=== PATIENT | female | born 1995 | race Caucasian/White ===

== ENCOUNTER 2016-12-20 04:32 | Emergency (ER) | payer MEDICARE | END 2016-12-20 05:50 | disposition home or self-care (01) | LOC: ER 04:32 | DX: T78.40XA Allergy, unspecified, initial encounter (principal); Z88.1 Allergy status to other antibiotic agents | CPT/HCPCS: 96374; 96375; J1200 ==

== ENCOUNTER 2017-01-08 14:55 | Emergency (ER) | payer MEDICARE | END 2017-01-08 15:15 | disposition home or self-care (01) | LOC: ER 14:55 | DX: L73.9 Follicular disorder, unspecified (principal); B95.62 Methicillin resistant Staphylococcus aureus infection as the cause of diseases classified elsewhere; Z88.1 Allergy status to other antibiotic agents ==